=== PATIENT | female | born 1995 | race African-American/Black ===

== ENCOUNTER 2016-12-21 07:13 | Emergency (ER) | payer OTHER ==
[2016-12-21 08:03] LABS: BASO % 0.5 % (0.0-1.0); EOS # 0.1 K/mm3 (0.0-0.50); EOS % 2.2 % (0.0-3.0); LARGE UNSTAINED CELL # 0.1 K/mm3 (0.0-0.4); LARGE UNSTAINED CELL % 2.4 % (0.0-4.0); LYMPH # 1.5 K/mm3 (1.5-6.5); LYMPH % 29.9 % (24.0-44.0); MEAN CORPUSCULAR HEMOGLOBIN 31.4 pg (27.0-33.0); MEAN CORPUSCULAR HGB CONC 34.8 g/dl (32.0-36.5); MEAN CORPUSCULAR VOLUME 90.3 fl (80.0-96.0); MONO # 0.3 K/mm3 (0.0-0.8); MONO % 5.3 % (0.0-5.0); NEUTROPHILS # 3.1 K/mm3 (1.8-7.7); NEUTROPHILS % 59.6 % (36.0-66.0); PLATELET COUNT, AUTOMATED 197 k/mm3 (150-450); RED CELL DISTRIBUTION WIDTH 12.9 % (11.5-14.5); WHITE BLOOD COUNT 5.2 K/mm3 (4.0-10.0)
[2016-12-21 08:22] LABS: ANION GAP 9 MEQ/L (8-16); BLOOD UREA NITROGEN 14 MG/DL (7-18); CALCIUM LEVEL 8.5 MG/DL (8.5-10.1); CARBON DIOXIDE LEVEL 22 MEQ/L (21-32); CHLORIDE LEVEL 108 MEQ/L (98-107); CREATININE FOR GFR 0.57 MG/DL (0.55-1.02); GLUCOSE, FASTING 69 MG/DL (70-105); POTASSIUM SERUM 3.9 MEQ/L (3.5-5.1); SODIUM LEVEL 139 MEQ/L (136-145)
--- NOTE | 2016-12-21 08:45 | EDDOCDS ---
Physician Documentation [facility] Name: Veronique Young Age: 21 yrs Sex: Female : 1995 Arrival Date: 12/21/2016 Time: 07:13 Bed I4 / M4 Private MD: Disposition: 12/21/16 08:33 Discharged to Home/Self Care. Impression: Acute vaginitis - bacterial, Abdominal and pelvic pain, state - second trimester. - Condition is Stable. - Discharge Instructions: Abdominal Pain During , Bacterial Vaginosis, Second Trimester of , Unjf-qo-Ooah. - Prescriptions for Metronidazole 0.75 % Vaginal Gel - insert 37.5 milligrams by VAGINAL route 2 times per day for 5 days in the morning and evening; 1 tube. - Medication Reconciliation, Local Pharmacy Hours form. - Follow up: Marietta Madrid, OB; When: Call to arrange an appointment; Reason: Recheck today's complaints, Continuance of care. - Problem is new. - Symptoms are unchanged. - Notes: may use extra strength tylenol as needed for pain Historical: - Allergies: no known allergies; - Home Meds: 1. 28 mg iron- 800 mcg Oral tab 1 tab daily (Last dose: 12/20/2016 08:00) - PMHx: none; - PSHx: none; - Social history: Smoking status: Patient states was never smoker of tobacco. No barriers to communication noted, Speaks appropriately for age. - Family history: Not pertinent. - : The pt / caregiver states he / she is not on anticoagulants. Home medication list is obtained from the patient. - Exposure Risk Screening:: None identified. 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 6 in. (167.64 cm) (R); Pain 10/10; 08:42 BP 112 / 65; Pulse 75; Resp 20; Temp 97.1(O); Pulse Ox 98% on R/A; Pain 8/10; jml1 07:19 Body Mass Index 26.63 (74.84 kg, 167.64 cm) ml6 MDM: 07:32 Set up pelvic ordered. ar2 07:32 Heart Tones ordered. ar2 07:32 CBC with Diff Ordered. EDMS 07:32 MED Profile Ordered. EDMS 07:32 UA Ordered. EDMS 07:32 Wet Prep Ordered. EDMS 07:32 GC & Chlamydia Amplification Ordered. EDMS 07:32 Urine Culture Ordered. EDMS 07:57 Financial registration complete. mm15 07:57 [facility] Payment Agreement was scanned into [employer] and attached to record. mm15 08:22 CBC with Diff Reviewed. ar2 08:22 UA Reviewed. ar2 08:22 Wet Prep Reviewed. ar2 08:30 MED Profile Reviewed. ar2 Signatures: Dispatcher [employer] Yamilex Concepcion RN RN dls Harman Dwyer, PA-C PA-C ar2 Deon Small RN RN ml6 Ling Gallo mm15 The chart was reviewed and I authenticate all verbal orders and agree with the evaluation and treatment provided.Attachments: 07:57 [facility] Payment Agreement mm15 MTDD
--- NOTE | 2016-12-21 08:45 | EDDOCDS ---
Nurse's Notes [facility] Name: Veronique Young Age: 21 yrs Sex: Female : 1995 Arrival Date: 12/21/2016 Time: 07:13 Bed I4 / M4 Private MD: Diagnosis: Acute vaginitis-bacterial;Abdominal and pelvic pain; state-second trimester Presentation: 12/21 07:18 Presenting complaint: Patient states: patient states lower abd pain and pelvic pain ml6 since yesterday, states 15 weeks . Risk factors: the patient reports no vaginal bleeding. Adult Sepsis Screening: The patient does not have new or worsening altered mentation. Patient's respiratory rate is less than 22. Systolic blood pressure is greater than 100. Patient has a qSOFA score of 0- Negative Sepsis Screen. Suicide/Homicide risk assessment- the patient denies having any suicidal and/or homicidal ideations and does not present with any other emotional, behavioral or mental health complaints. 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 Transition of care: patient was not received from another setting of care. 07:18 Acuity: JUAN F Level 3 ml6 07:18 Method Of Arrival: Walkin/Carried/Asstd ml6 Triage Assessment: 07:20 General: Appears uncomfortable, Behavior is appropriate for age, cooperative. Pain: ml6 Location: abdomen and pelvis Pain currently is 10 out of 10 on a pain scale. Pain does not radiate. Quality of pain is described as aching, Pain began 1 day ago Is continuous Alleviated by nothing. Aggravated by increased activity. HIV screening NA for this visit Offered previously. GI: Abdomen is flat, gravid Bowel sounds present X 4 quads. Abd is soft and non tender X 4 quads. Reports Pain is 10 out of 10 on a pain scale. Denies nausea, vomiting. 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 28 mg iron- 800 mcg Oral tab 1 tab daily (Last dose: 12/20/2016 08:00) - PMHx: none; - PSHx: none; - Social history: Smoking status: Patient states was never smoker of tobacco. No barriers to communication noted, Speaks appropriately for age. - Family history: Not pertinent. - : The pt / caregiver states he / she is not on anticoagulants. Home medication list is obtained from the patient. - Exposure Risk Screening:: None identified. Screenin:46 Screening information is obtained from the patient. Fall risk: No risks identified. dls Assistance ADL's: requires no assistance with activities of daily living. Abuse/DV Screen: The patient / caregiver reports he/she is: not in a situation that causes fear, pain or injury. Nutritional screening: No deficits noted. Advance Directives: Currently, there is no health care proxy. There is no active DNR order. There is no living will. There is no Power of [employer]. Advance directive information has not previously been placed in an [facility] medical record. home support is adequate. Assessment: 07:45 General: Appears in no apparent distress, well developed, well nourished, well groomed, dls Behavior is cooperative. Neurological: No deficits noted. EENT: No deficits noted. Cardiovascular: No deficits noted. Respiratory: No deficits noted. GI: Abdomen is non- distended Bowel sounds present X 4 quads. Abd is soft and non tender X 4 quads. : No deficits noted. Derm: No deficits noted. Musculoskeletal: No deficits noted. Vital Signs: 07:19 BP 129 / 67; Pulse 67; Resp 16; Temp 98.3(O); Pulse Ox 98% on R/A; Weight 74.84 kg (R); ml6 Height 5 ft. 6 in. (167.64 cm) (R); Pain 10/10; 08:42 BP 112 / 65; Pulse 75; Resp 20; Temp 97.1(O); Pulse Ox 98% on R/A; Pain 8/10; jml1 07:19 Body Mass Index 26.63 (74.84 kg, 167.64 cm) ml6 Vitals: 07:19 Log In Time: December 21, 2016 at 07:13. ml6 07:44 Heart Tones 150BPM. dls ED Course: 07:14 Patient visited by Robert Murdock Reg. pm4 07:14 Patient moved to Waiting pm4 07:19 Triage Initiated ml6 07:21 Patient moved to I3 / M3 ml6 07:22 Harman Dwyer PA-C is PHCP. ar2 07:22 Jesus Alberto Vargas MD is Attending Physician. ar2 07:22 Patient visited by Harman Dwyer PA-C. ar2 07:23 Patient moved to I4 / M4 ml6 07:46 The patient / caregiver is instructed regarding the plan of care and ED course. dls 07:46 No IV's were initiated during this patient's visit. dls 07:56 Urine Culture Sent. dls 07:56 UA Sent. dls 07:56 MED Profile Sent. dls 07:56 CBC with Diff Sent. dls 07:57 [facility] Payment Agreement was scanned into [employer] and attached to record. mm15 08:05 GC & Chlamydia Amplification Sent. jml1 08:05 Wet Prep Sent. jml1 08:22 Patient visited by Yamilex Sotelo RN. dls 08:32 Marietta Madrid OB is Referral Physician. ar2 08:42 Patient visited by Arnie Owusu. jml1 08:44 No procedures done that require assistance. dls Order Results: Lab Order: CBC with Diff; SPEC'M 12/21/16 07:45 Test: WHITE BLOOD COUNT; Value: 5.2; Range: 4.0-10.0; Units: K/mm3; Status: F Test: RED BLOOD COUNT; Value: 3.90; Range: 4.00-5.40; Abnormal: Below low normal; Units: M/mm3; Status: F Test: HEMOGLOBIN; Value: 12.2; Range: 12.0-16.0; Units: g/dl; Status: F Test: HEMATOCRIT; Value: 35.2; Range: 36.0-47.0; Abnormal: Below low normal; Units: %; Status: F Test: MEAN CORPUSCULAR VOLUME; Value: 90.3; Range: 80.0-96.0; Units: fl; Status: F Test: MEAN CORPUSCULAR HEMOGLOBIN; Value: 31.4; Range: 27.0-33.0; Units: pg; Status: F Test: MEAN CORPUSCULAR HGB CONC; Value: 34.8; Range: 32.0-36.5; Units: g/dl; Status: F Test: RED CELL DISTRIBUTION WIDTH; Value: 12.9; Range: 11.5-14.5; Units: %; Status: F Test: PLATELET COUNT, AUTOMATED; Value: 197; Range: 150-450; Units: k/mm3; Status: F Test: NEUTROPHILS %; Value: 59.6; Range: 36.0-66.0; Units: %; Status: F Test: LYMPH %; Value: 29.9; Range: 24.0-44.0; Units: %; Status: F Test: MONO %; Value: 5.3; Range: 0.0-5.0; Abnormal: Above high normal; Units: %; Status: F Test: EOS %; Value: 2.2; Range: 0.0-3.0; Units: %; Status: F Test: BASO %; Value: 0.5; Range: 0.0-1.0; Units: %; Status: F Test: LARGE UNSTAINED CELL %; Value: 2.4; Range: 0.0-4.0; Units: %; Status: F Test: NEUTROPHILS #; Value: 3.1; Range: 1.8-7.7; Units: K/mm3; Status: F Test: LYMPH #; Value: 1.5; Range: 1.5-6.5; Units: K/mm3; Status: F Test: MONO #; Value: 0.3; Range: 0.0-0.8; Units: K/mm3; Status: F Test: EOS #; Value: 0.1; Range: 0.0-0.50; Units: K/mm3; Status: F Test: BASO #; Value: 0.0; Range: 0.0-0.2; Units: K/mm3; Status: F Test: LARGE UNSTAINED CELL #; Value: 0.1; Range: 0.0-0.4; Units: K/mm3; Status: F Lab Order: MED Profile; SPEC'M 12/21/16 07:45 Test: GLUCOSE, FASTING; Value: 69; Range: 70-105; Abnormal: Below low normal; Units: MG/DL; Status: F Test: BLOOD UREA NITROGEN; Value: 14; Range: 7-18; Units: MG/DL; Status: F Test: CREATININE FOR GFR; Value: 0.57; Range: 0.55-1.02; Units: MG/DL; Status: F Test: SODIUM LEVEL; Value: 139; Range: 136-145; Units: MEQ/L; Status: F Test: POTASSIUM SERUM; Value: 3.9; Range: 3.5-5.1; Units: MEQ/L; Status: F Test: CHLORIDE LEVEL; Value: 108; Range: 98-107; Abnormal: Above high normal; Units: MEQ/L; Status: F Test: CARBON DIOXIDE LEVEL; Value: 22; Range: 21-32; Units: MEQ/L; Status: F Test: ANION GAP; Value: 9; Range: 8-16; Units: MEQ/L; Status: F Test: CALCIUM LEVEL; Value: 8.5; Range: 8.5-10.1; Units: MG/DL; Status: F Lab Order: UA; SPEC'M 12/21/16 07:45 Test: APPEARANCE, URINE; Value: HAZY; Range: CLEAR; Status: F Test: COLOR, URINE; Value: YELLOW; Range: YELLOW; Status: F Test: PH,URINE; Value: 6.0; Range: 5.0-9.0; Units: UNITS; Status: F Test: SPECIFIC GRAVITY URINE AUTO; Value: 1.025; Range: 1.002-1.035; Status: F Test: PROTEIN, URINE AUTO; Value: NEGATIVE; Range: NEGATIVE; Units: mg/dL; Status: F Test: GLUCOSE, URINE (UA) AUTO; Value: NEGATIVE; Range: NEGATIVE; Units: mg/dL; Status: F Test: KETONE, URINE AUTO; Value: NEGATIVE; Range: NEGATIVE; Units: mg/dL; Status: F Test: UROBILINOGEN, URINE AUTO; Value: 0.2; Range: 0.0-2.0; Units: mg/dL; Status: F Test: BILIRUBIN, URINE AUTO; Value: NEGATIVE; Range: NEGATIVE; Status: F Test: NITRITE, URINE AUTO; Value: NEGATIVE; Range: NEGATIVE; Status: F Test: LEUKOCYTE ESTERASE, URINE AUTO; Value: NEGATIVE; Range: NEGATIVE; Status: F Test: BLOOD, URINE BLOOD; Value: NEGATIVE; Range: NEGATIVE; Status: F Test: WBC, URINE AUTO; Value: 1; Range: 0-3; Units: /HPF; Status: F Test: RBC, URINE AUTO; Value: 1; Range: 0-3; Units: /HPF; Status: F Test: BACTERIA, URINE AUTO; Value: 1+; Range: NEGATIVE; Abnormal: Above high normal; Status: F Test: SQUAMOUS EPITHELIAL CELL UR AU; Value: 1; Range: 0-6; Units: /HPF; Status: F Test: MUCUS, URINE; Value: SMALL; Range: NEGATIVE; Status: F Test: HYALINE CAST, URINE AUTO; Value: 0; Range: 0-1; Units: /LPF; Status: F Lab Order: Wet Prep; SPEC'M 12/21/16 07:45 Test: WET PREP; Value: WET PREP RESULT; Status: F Test: WET PREP; Value: MANY EPITHELIAL CELLS PRESENT; Status: F Test: WET PREP; Value: FEW CLUE CELLS PRESENT; Status: F Test: WET PREP; Value: MANY LONG RODS PRESENT; Status: F Outcome: 08:33 Discharge ordered by Provider. ar2 08:43 Discharge Assessment: Patient awake, alert and oriented x 3. No cognitive and/or dls functional deficits noted. Patient verbalized understanding of disposition instructions. patient administered narcotics - no. The following High Risk Discharge criteria are identified: None. Discharged to home ambulatory. Condition: stable. Discharge instructions given to patient, Instructed on discharge instructions, follow up and referral plans. medication usage, Demonstrated understanding of instructions, medications, Pt was receptive of discharge instructions/ teaching. Prescriptions given X 1. No special radiology studies were completed. Property sent home with patient. 08:44 Patient left the ED. dls Signatures: Yamilex Sotelo, RN RN dls Harman Dwyer PA-C PA-C ar2 Deon Small RN RN ml6 Arnie Owusul1 Ling Gallo mm15 Robert Murdock, Reg Reg pm4 MTDD
--- NOTE | 2016-12-23 09:45 | EDDOCDS ---
Physician Documentation [facility] Name: Veronique Young Age: 21 yrs Sex: Female : 1995 Arrival Date: 12/21/2016 Time: 07:13 Bed I4 / M4 Private MD: Disposition: 12/21/16 08:33 Discharged to Home/Self Care. Impression: Acute vaginitis - bacterial, Abdominal and pelvic pain, state - second trimester. - Condition is Stable. - Discharge Instructions: Abdominal Pain During , Bacterial Vaginosis, Second Trimester of , [id number]. - Prescriptions for Metronidazole 0.75 % Vaginal Gel - insert 37.5 milligrams by VAGINAL route 2 times per day for 5 days in the morning and evening; 1 tube. - Medication Reconciliation, Local Pharmacy Hours form. - Follow up: Marietta Madrid, OB; When: Call to arrange an appointment; Reason: Recheck today's complaints, Continuance of care. - Problem is new. - Symptoms are unchanged. - Notes: may use extra strength tylenol as needed for pain Historical: - Allergies: no known allergies; - Home Meds: 1. 28 mg iron- 800 mcg Oral tab 1 tab daily (Last dose: 12/20/2016 08:00) - PMHx: none; - PSHx: none; - Social history: Smoking status: Patient states was never smoker of tobacco. No barriers to communication noted, Speaks appropriately for age. - Family history: Not pertinent. - : The pt / caregiver states he / she is not on anticoagulants. Home medication list is obtained from the patient. - Exposure Risk Screening:: None identified. 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 6 in. (167.64 cm) (R); Pain 10/10; 08:42 BP 112 / 65; Pulse 75; Resp 20; Temp 97.1(O); Pulse Ox 98% on R/A; Pain 8/10; jml1 07:19 Body Mass Index 26.63 (74.84 kg, 167.64 cm) ml6 MDM: 07:32 Set up pelvic ordered. ar2 07:32 Heart Tones ordered. ar2 07:32 CBC with Diff Ordered. EDMS 07:32 MED Profile Ordered. EDMS 07:32 UA Ordered. EDMS 07:32 Wet Prep Ordered. EDMS 07:32 GC & Chlamydia Amplification Ordered. EDMS 07:32 Urine Culture Ordered. EDMS 07:57 Financial registration complete. mm15 07:57 [facility] Payment Agreement was scanned into [employer] and attached to record. mm15 08:22 CBC with Diff Reviewed. ar2 08:22 UA Reviewed. ar2 08:22 Wet Prep Reviewed. ar2 08:30 MED Profile Reviewed. ar2 14:28 T-Sheet-- Draft Copy was scanned into [employer] and attached to record. gb Signatures: Dispatcher [employer] Yamilex Concepcion, MARIE RN dls Tiffany Wilcox, Reg Reg gb Harman Dwyer, PA-C PA-Tamara ar2 Deon Small, MARIE RN ml6 Ling Gallo mm15 The chart was reviewed and I authenticate all verbal orders and agree with the evaluation and treatment provided.Attachments: 07:57 [facility] Payment Agreement mm15 14:28 T-Sheet-- Draft Copy gb Chart Complete MTDD
--- NOTE | 2016-12-23 09:45 | EDDOCDS ---
Physician Documentation [facility] Name: Veronique Young Age: 21 yrs Sex: Female : 1995 Arrival Date: 12/21/2016 Time: 07:13 Bed I4 / M4 Private MD: Disposition: 12/21/16 08:33 Discharged to Home/Self Care. Impression: Acute vaginitis - bacterial, Abdominal and pelvic pain, state - second trimester. - Condition is Stable. - Discharge Instructions: Abdominal Pain During , Bacterial Vaginosis, Second Trimester of , [id number]. - Prescriptions for Metronidazole 0.75 % Vaginal Gel - insert 37.5 milligrams by VAGINAL route 2 times per day for 5 days in the morning and evening; 1 tube. - Medication Reconciliation, Local Pharmacy Hours form. - Follow up: Marietta Madrid, OB; When: Call to arrange an appointment; Reason: Recheck today's complaints, Continuance of care. - Problem is new. - Symptoms are unchanged. - Notes: may use extra strength tylenol as needed for pain Historical: - Allergies: no known allergies; - Home Meds: 1. 28 mg iron- 800 mcg Oral tab 1 tab daily (Last dose: 12/20/2016 08:00) - PMHx: none; - PSHx: none; - Social history: Smoking status: Patient states was never smoker of tobacco. No barriers to communication noted, Speaks appropriately for age. - Family history: Not pertinent. - : The pt / caregiver states he / she is not on anticoagulants. Home medication list is obtained from the patient. - Exposure Risk Screening:: None identified. 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 6 in. (167.64 cm) (R); Pain 10/10; 08:42 BP 112 / 65; Pulse 75; Resp 20; Temp 97.1(O); Pulse Ox 98% on R/A; Pain 8/10; jml1 07:19 Body Mass Index 26.63 (74.84 kg, 167.64 cm) ml6 MDM: 07:32 Set up pelvic ordered. ar2 07:32 Heart Tones ordered. ar2 07:32 CBC with Diff Ordered. EDMS 07:32 MED Profile Ordered. EDMS 07:32 UA Ordered. EDMS 07:32 Wet Prep Ordered. EDMS 07:32 GC & Chlamydia Amplification Ordered. EDMS 07:32 Urine Culture Ordered. EDMS 07:57 Financial registration complete. mm15 07:57 [facility] Payment Agreement was scanned into [employer] and attached to record. mm15 08:22 CBC with Diff Reviewed. ar2 08:22 UA Reviewed. ar2 08:22 Wet Prep Reviewed. ar2 08:30 MED Profile Reviewed. ar2 14:28 T-Sheet-- Draft Copy was scanned into [employer] and attached to record. gb Signatures: Dispatcher [employer] Yamilex Concepcion, MARIE RN dls Tiffany Wilcox, Reg Reg gb Harman Dwyer, PA-C PA-Tamara ar2 Deon Small, MARIE RN ml6 Ling Gallo mm15 The chart was reviewed and I authenticate all verbal orders and agree with the evaluation and treatment provided.Attachments: 07:57 [facility] Payment Agreement mm15 14:28 T-Sheet-- Draft Copy gb Chart Complete MTDD
--- NOTE | 2016-12-23 09:45 | EDDOCDS ---
Nurse's Notes [facility] Name: Veronique Young Age: 21 yrs Sex: Female : 1995 Arrival Date: 12/21/2016 Time: 07:13 Bed I4 / M4 Private MD: Diagnosis: Acute vaginitis-bacterial;Abdominal and pelvic pain; state-second trimester Presentation: 12/21 07:18 Presenting complaint: Patient states: patient states lower abd pain and pelvic pain ml6 since yesterday, states 15 weeks . Risk factors: the patient reports no vaginal bleeding. Adult Sepsis Screening: The patient does not have new or worsening altered mentation. Patient's respiratory rate is less than 22. Systolic blood pressure is greater than 100. Patient has a qSOFA score of 0- Negative Sepsis Screen. Suicide/Homicide risk assessment- the patient denies having any suicidal and/or homicidal ideations and does not present with any other emotional, behavioral or mental health complaints. 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 Transition of care: patient was not received from another setting of care. 07:18 Acuity: JUAN F Level 3 ml6 07:18 Method Of Arrival: Walkin/Carried/Asstd ml6 Triage Assessment: 07:20 General: Appears uncomfortable, Behavior is appropriate for age, cooperative. Pain: ml6 Location: abdomen and pelvis Pain currently is 10 out of 10 on a pain scale. Pain does not radiate. Quality of pain is described as aching, Pain began 1 day ago Is continuous Alleviated by nothing. Aggravated by increased activity. HIV screening NA for this visit Offered previously. GI: Abdomen is flat, gravid Bowel sounds present X 4 quads. Abd is soft and non tender X 4 quads. Reports Pain is 10 out of 10 on a pain scale. Denies nausea, vomiting. VP COMMUNICATIONS: 07:19 2, Living 1, LMP 08/29/2016, Verified, EDC 06/05/2017, Gestational age ml6 from LMP: 16 weeks 2 days Historical: - Allergies: no known allergies; - Home Meds: 1. 28 mg iron- 800 mcg Oral tab 1 tab daily (Last dose: 12/20/2016 08:00) - PMHx: none; - PSHx: none; - Social history: Smoking status: Patient states was never smoker of tobacco. No barriers to communication noted, Speaks appropriately for age. - Family history: Not pertinent. - : The pt / caregiver states he / she is not on anticoagulants. Home medication list is obtained from the patient. - Exposure Risk Screening:: None identified. Screenin:46 Screening information is obtained from the patient. Fall risk: No risks identified. dls Assistance ADL's: requires no assistance with activities of daily living. Abuse/DV Screen: The patient / caregiver reports he/she is: not in a situation that causes fear, pain or injury. Nutritional screening: No deficits noted. Advance Directives: Currently, there is no health care proxy. There is no active DNR order. There is no living will. There is no Power of Hat Liner. Advance directive information has not previously been placed in an [facility] medical record. home support is adequate. Assessment: 07:45 General: Appears in no apparent distress, well developed, well nourished, well groomed, dls Behavior is cooperative. Neurological: No deficits noted. EENT: No deficits noted. Cardiovascular: No deficits noted. Respiratory: No deficits noted. GI: Abdomen is non- distended Bowel sounds present X 4 quads. Abd is soft and non tender X 4 quads. : No deficits noted. Derm: No deficits noted. Musculoskeletal: No deficits noted. Vital Signs: 07:19 BP 129 / 67; Pulse 67; Resp 16; Temp 98.3(O); Pulse Ox 98% on R/A; Weight 74.84 kg (R); ml6 Height 5 ft. 6 in. (167.64 cm) (R); Pain 10/10; 08:42 BP 112 / 65; Pulse 75; Resp 20; Temp 97.1(O); Pulse Ox 98% on R/A; Pain 8/10; jml1 07:19 Body Mass Index 26.63 (74.84 kg, 167.64 cm) ml6 Vitals: 07:19 Log In Time: December 21, 2016 at 07:13. ml6 07:44 Heart Tones 150BPM. dls ED Course: 07:14 Patient visited by Robert Murdock Reg. pm4 07:14 Patient moved to Waiting pm4 07:19 Triage Initiated ml6 07:21 Patient moved to I3 / M3 ml6 07:22 Harman Dwyer PA-C is PHCP. ar2 07:22 Jesus Alberto Vargas MD is Attending Physician. ar2 07:22 Patient visited by Harman Dwyer PA-C. ar2 07:23 Patient moved to I4 / M4 ml6 07:46 The patient / caregiver is instructed regarding the plan of care and ED course. dls 07:46 No IV's were initiated during this patient's visit. dls 07:56 Urine Culture Sent. dls 07:56 UA Sent. dls 07:56 MED Profile Sent. dls 07:56 CBC with Diff Sent. dls 07:57 [facility] Payment Agreement was scanned into [employer] and attached to record. mm15 08:05 GC & Chlamydia Amplification Sent. jml1 08:05 Wet Prep Sent. jml1 08:22 Patient visited by Yamilex Sotelo RN. dls 08:32 Marietta Madrid OB is Referral Physician. ar2 08:42 Patient visited by Arnie Owusu. jml1 08:44 No procedures done that require assistance. dls 14:28 T-Sheet-- Draft Copy was scanned into [employer] and attached to record. gb Order Results: Lab Order: CBC with Diff; SPEC'M 12/21/16 07:45 Test: WHITE BLOOD COUNT; Value: 5.2; Range: 4.0-10.0; Units: K/mm3; Status: F Test: RED BLOOD COUNT; Value: 3.90; Range: 4.00-5.40; Abnormal: Below low normal; Units: M/mm3; Status: F Test: HEMOGLOBIN; Value: 12.2; Range: 12.0-16.0; Units: g/dl; Status: F Test: HEMATOCRIT; Value: 35.2; Range: 36.0-47.0; Abnormal: Below low normal; Units: %; Status: F Test: MEAN CORPUSCULAR VOLUME; Value: 90.3; Range: 80.0-96.0; Units: fl; Status: F Test: MEAN CORPUSCULAR HEMOGLOBIN; Value: 31.4; Range: 27.0-33.0; Units: pg; Status: F Test: MEAN CORPUSCULAR HGB CONC; Value: 34.8; Range: 32.0-36.5; Units: g/dl; Status: F Test: RED CELL DISTRIBUTION WIDTH; Value: 12.9; Range: 11.5-14.5; Units: %; Status: F Test: PLATELET COUNT, AUTOMATED; Value: 197; Range: 150-450; Units: k/mm3; Status: F Test: NEUTROPHILS %; Value: 59.6; Range: 36.0-66.0; Units: %; Status: F Test: LYMPH %; Value: 29.9; Range: 24.0-44.0; Units: %; Status: F Test: MONO %; Value: 5.3; Range: 0.0-5.0; Abnormal: Above high normal; Units: %; Status: F Test: EOS %; Value: 2.2; Range: 0.0-3.0; Units: %; Status: F Test: BASO %; Value: 0.5; Range: 0.0-1.0; Units: %; Status: F Test: LARGE UNSTAINED CELL %; Value: 2.4; Range: 0.0-4.0; Units: %; Status: F Test: NEUTROPHILS #; Value: 3.1; Range: 1.8-7.7; Units: K/mm3; Status: F Test: LYMPH #; Value: 1.5; Range: 1.5-6.5; Units: K/mm3; Status: F Test: MONO #; Value: 0.3; Range: 0.0-0.8; Units: K/mm3; Status: F Test: EOS #; Value: 0.1; Range: 0.0-0.50; Units: K/mm3; Status: F Test: BASO #; Value: 0.0; Range: 0.0-0.2; Units: K/mm3; Status: F Test: LARGE UNSTAINED CELL #; Value: 0.1; Range: 0.0-0.4; Units: K/mm3; Status: F Lab Order: [facility]; SPEC'M 12/21/16 07:45 Test: GLUCOSE, FASTING; Value: 69; Range: 70-105; Abnormal: Below low normal; Units: MG/DL; Status: F Test: BLOOD UREA NITROGEN; Value: 14; Range: 7-18; Units: MG/DL; Status: F Test: CREATININE FOR GFR; Value: 0.57; Range: 0.55-1.02; Units: MG/DL; Status: F Test: SODIUM LEVEL; Value: 139; Range: 136-145; Units: MEQ/L; Status: F Test: POTASSIUM SERUM; Value: 3.9; Range: 3.5-5.1; Units: MEQ/L; Status: F Test: CHLORIDE LEVEL; Value: 108; Range: 98-107; Abnormal: Above high normal; Units: MEQ/L; Status: F Test: CARBON DIOXIDE LEVEL; Value: 22; Range: 21-32; Units: MEQ/L; Status: F Test: ANION GAP; Value: 9; Range: 8-16; Units: MEQ/L; Status: F Test: CALCIUM LEVEL; Value: 8.5; Range: 8.5-10.1; Units: MG/DL; Status: F Lab Order: UA; SPEC'M 12/21/16 07:45 Test: APPEARANCE, URINE; Value: HAZY; Range: CLEAR; Status: F Test: COLOR, URINE; Value: YELLOW; Range: YELLOW; Status: F Test: PH,URINE; Value: 6.0; Range: 5.0-9.0; Units: UNITS; Status: F Test: SPECIFIC GRAVITY URINE AUTO; Value: 1.025; Range: 1.002-1.035; Status: F Test: PROTEIN, URINE AUTO; Value: NEGATIVE; Range: NEGATIVE; Units: mg/dL; Status: F Test: GLUCOSE, URINE (UA) AUTO; Value: NEGATIVE; Range: NEGATIVE; Units: mg/dL; Status: F Test: KETONE, URINE AUTO; Value: NEGATIVE; Range: NEGATIVE; Units: mg/dL; Status: F Test: UROBILINOGEN, URINE AUTO; Value: 0.2; Range: 0.0-2.0; Units: mg/dL; Status: F Test: BILIRUBIN, URINE AUTO; Value: NEGATIVE; Range: NEGATIVE; Status: F Test: NITRITE, URINE AUTO; Value: NEGATIVE; Range: NEGATIVE; Status: F Test: LEUKOCYTE ESTERASE, URINE AUTO; Value: NEGATIVE; Range: NEGATIVE; Status: F Test: BLOOD, URINE BLOOD; Value: NEGATIVE; Range: NEGATIVE; Status: F Test: WBC, URINE AUTO; Value: 1; Range: 0-3; Units: /HPF; Status: F Test: RBC, URINE AUTO; Value: 1; Range: 0-3; Units: /HPF; Status: F Test: BACTERIA, URINE AUTO; Value: 1+; Range: NEGATIVE; Abnormal: Above high normal; Status: F Test: SQUAMOUS EPITHELIAL CELL UR AU; Value: 1; Range: 0-6; Units: /HPF; Status: F Test: MUCUS, URINE; Value: SMALL; Range: NEGATIVE; Status: F Test: HYALINE CAST, URINE AUTO; Value: 0; Range: 0-1; Units: /LPF; Status: F Lab Order: Wet Prep; SPEC'M 12/21/16 07:45 Test: WET PREP; Value: WET PREP RESULT; Status: F Test: WET PREP; Value: MANY EPITHELIAL CELLS PRESENT; Status: F Test: WET PREP; Value: FEW CLUE CELLS PRESENT; Status: F Test: WET PREP; Value: MANY LONG RODS PRESENT; Status: F Lab Order: GC & Chlamydia Amplification; SPEC'M 12/21/16 07:45 Test: CHLAMYDIA DNA AMPLIFICATION; Value: NEGATIVE; Range: NEGATIVE; Status: F Test: GC DNA AMPLIFICATION; Value: NEGATIVE; Range: NEGATIVE; Status: F Lab Order: Urine Culture; SPEC'M 12/21/16 07:45 Test: URINE CULTURE; Value: <EXTERNAL COMMENT eCWMed> FULL REPORT IN LAB NOTES (eCW and Medent).; Status: F Test: URINE CULTURE; Value: URINE CULTURE RESULT NO GROWTH; Status: F Outcome: 08:33 Discharge ordered by Provider. ar2 08:43 Discharge Assessment: Patient awake, alert and oriented x 3. No cognitive and/or dls functional deficits noted. Patient verbalized understanding of disposition instructions. patient administered narcotics - no. The following High Risk Discharge criteria are identified: None. Discharged to home ambulatory. Condition: stable. Discharge instructions given to patient, Instructed on discharge instructions, follow up and referral plans. medication usage, Demonstrated understanding of instructions, medications, Pt was receptive of discharge instructions/ teaching. Prescriptions given X 1. No special radiology studies were completed. Property sent home with patient. 08:44 Patient left the ED. dls Signatures: Yamilex Sotelo, RN RN dls Tiffany Wilcox, Reg Reg gb Harman Dwyer, PA-C PA-C ar2 Deon Small RN RN ml6 Arnie Owusu jml1 Ling Gallo mm15 Robert Murdock, Reg Reg pm4 Chart Complete MTDD
== END 2016-12-21 08:44 | disposition home or self-care (01) ==
LOC: M ED 07:13
DX: O23.592 Infection of other part of genital tract in pregnancy, second trimester (principal); R10.2 Pelvic and perineal pain; Z79.899 Other long term (current) drug therapy; Z3A.19 19 weeks gestation of pregnancy

== ENCOUNTER 2017-04-11 21:25 | Outpatient (CLI) | payer OTHER ==
[~2017-04-11] VITALS: Ht 167.6 cm; Wt 84.0 kg
== END 2017-04-11 23:00 | disposition home or self-care (01) ==
LOC: M LDO 21:25
PROVIDERS: ATTEND Obstetrics & Gynecology
DX: O26.893 Other specified pregnancy related conditions, third trimester (principal); R10.2 Pelvic and perineal pain; Z3A.31 31 weeks gestation of pregnancy

== ENCOUNTER 2017-05-18 20:25 | Outpatient (CLI) | payer OTHER ==
[~2017-05-18] VITALS: Ht 167.6 cm; Wt 88.0 kg
[2017-05-18 20:35] VITALS: BP 110/74
[2017-05-18 21:29] VITALS: BP 108/60
== END 2017-05-18 21:32 | disposition home or self-care (01) ==
LOC: M LDO 20:25
PROVIDERS: ATTEND Obstetrics & Gynecology
DX: O26.893 Other specified pregnancy related conditions, third trimester (principal); Z3A.36 36 weeks gestation of pregnancy; N89.9 Noninflammatory disorder of vagina, unspecified

== ENCOUNTER 2017-06-15 06:15 | Inpatient (IN) | payer OTHER ==
[2017-06-15] VITALS (38 sets, daily range): BP systolic 102–137; BP diastolic 54–81
[~2017-06-15] VITALS: Ht 167.6 cm; Wt 89.5 kg
[2017-06-15] MEDS ORDERED: LACTATED RINGER'S 1000 ML IV STA (07:44)
[2017-06-15] MEDS ORDERED: LR 1,000 ML IV SCH (08:00)
[2017-06-15] MEDS ORDERED: PRENTAB9 PO (08:12)
[2017-06-15 08:19] LABS: MEAN CORPUSCULAR HEMOGLOBIN 28.5 pg (27.0-33.0); MEAN CORPUSCULAR HGB CONC 33.7 g/dl (32.0-36.5); MEAN CORPUSCULAR VOLUME 84.6 fl (80.0-96.0); RED CELL DISTRIBUTION WIDTH 13.7 % (11.5-14.5); WHITE BLOOD COUNT 6.6 K/mm3 (4.0-10.0)
--- NOTE | 2017-06-15 08:37 | IPNPDOC ---
Text Note Date of Service The patient was seen on 06/15/17. NOTE SBAR from Dr Pineda at 0730 NST Cat1, mod radhika, no decels, reg ctx's Cx / Doing well, likely AROM with next check SBAR to SOLOMON Hoff soon (I am covering for her) Sessions VS,Og, I+O VS, Og I+O Laboratory Tests 06/15/17 08:06 Red Blood Count 3.72 L, Mean Corpuscular Volume 84.6, Mean Corpuscular Hemoglobin 28.5, Mean Corpuscular Hemoglobin Concent 33.7, Red Cell Distribution Width 13.7 SESSIONS,CJ Das MD Jun 15, 2017 08:37
[2017-06-15] MEDS ORDERED: FENTANYL 2MCG/ML ROPIVACAINE 0.2% IN 0.9% NACL 200ML IVBAG As Ordered ONE (10:17)
[2017-06-15] MEDS ORDERED: EPIDURAL COMMENT XX SCH (12:00)
[2017-06-15] MEDS ORDERED: REFRIGERATOR IV KEYS XX PRN (12:00)
[2017-06-15] MEDS ORDERED: ONDANSETRON 4MG/2ML VIAL (J2405) IV PRN ×2 (12:00→17:30)
[2017-06-15] MEDS ORDERED: ePHEDrine SULFATE 25 MG/5 ML(5MG/ML) SYRINGE IV PRN (12:00)
[2017-06-15] MEDS ORDERED: NALOXONE INJ 0.4 MG/1 ML VIAL (J2310) IV PRN (12:00)
[2017-06-15] MEDS ORDERED: FENTANYL/ROPIVACAINE/NACL BAG 200 ML EPIDURAL SCH (12:00)
[2017-06-15] MEDS ORDERED: LACTATED RINGER'S 1000 ML IV PRN (12:00)
[2017-06-15] MEDS ORDERED: EPIDURAL/PCA KEYS XX PRN (12:00)
[2017-06-15] MEDS ORDERED: diphenhydrAMINE INJ 50MG/ML VIAL (J1200) IV PRN (12:00)
--- NOTE | 2017-06-15 14:04 | IPNPDOC ---
Text Note Date of Service The patient was seen on 06/15/17. NOTE [id number] @ 1359 S: resting in bed on her right side with FOB sitting with her. Reports she is very comfortable with the epidural infusing O: VS- WNL, afebrile FHR- 120, moderate variability, + accels, no decels CTX- irregular Q 4-8 min, lasting < 89 sec, palpated as moderate, resting tone palpated as soft SVE- 6/90/-2, soft/mid/vtx with bulging bag A: 22 yo @ 40+3 by 8+5 wk US on [id number] in active labor. CAT I FHR tracing, continued cervical progress P: continue to monitor, reassess in 2 hours or prn, rupture membranes at next exam VS,Fishbone, I+O VS, Fishbone, I+O Laboratory Tests 06/15/17 08:06 Red Blood Count 3.72 L, Mean Corpuscular Volume 84.6, Mean Corpuscular Hemoglobin 28.5, Mean Corpuscular Hemoglobin Concent 33.7, Red Cell Distribution Width 13.7 Vital Signs Date Time Temp Pulse Resp B/P (MAP) Pulse Ox O2 Delivery O2 Flow Rate FiO2 06/15/17 11:33 86 18 126/70 (88) 06/15/17 10:54 97.9 EMMA VIZCARRA CNM Jun 15, 2017 14:03
[2017-06-15] MEDS ORDERED: OXYTOCIN 30 UNITS IN 0.9% NaCl 500ML IV BAG (J2590) As Ordered ONE (16:40)
--- NOTE | 2017-06-15 17:14 | IPNPDOC ---
Text Note Date of Service The patient was seen on 06/15/17. NOTE [id number] @ 1712- late entry from 1515 S: resting in bed on her left side with FOB sitting with her. Reports she is very comfortable with the epidural infusing O: VS- WNL, afebrile FHR- 120, moderate variability, + accels, intermittent early and variable decels CTX- irregular Q 2-5 min, lasting < 90 sec, palpated as strong, resting tone palpated as soft SVE- 6/90/-2, soft/mid/vtx with bulging bag AROM- moderate amount of meconium stained fluid, no odor noted A: 22 yo @ 40+3 by 8+5 wk US on [id number] in active labor. CAT II FHR tracing, no cervical change noted P: continue to monitor, reassess in 2 hours or prn, rupture membranes at next exam VS,Fishbone, I+O VS, Fishbone, I+O Laboratory Tests 06/15/17 08:06 Red Blood Count 3.72 L, Mean Corpuscular Volume 84.6, Mean Corpuscular Hemoglobin 28.5, Mean Corpuscular Hemoglobin Concent 33.7, Red Cell Distribution Width 13.7 Vital Signs Date Time Temp Pulse Resp B/P (MAP) Pulse Ox O2 Delivery O2 Flow Rate FiO2 06/15/17 11:33 86 18 126/70 (88) 06/15/17 10:54 97.9 EMMA VIZCARRA CNM Jun 15, 2017 17:14
--- NOTE | 2017-06-15 17:17 | DNPDOC ---
[facility] Delivery Note Delivery Note DATE OF DELIVERY: Jun 15, 2017 at 1650 PREDELIVERY DIAGNOSIS: 40+3 weeks' gestation and labor. POST DELIVERY DIAGNOSIS: Delivered. PROCEDURE: (spontaneous vaginal delivery) FAT PRESSROOM WORKER: Crystal Hoff CNM ANESTHESIA: epidpineda ESTIMATED BLOOD LOSS: 200mL. FINDINGS: male infant, Score 9/9, no nuchal cord, has not been weighed at time this note was written DELIVERY SUMMARY: Patient is a 22-year-old G2 now P2002 who was admitted to labor and delivery for active labor. Progressed to c/c/+2 with epidural infusing and minimal desire to push; head noted when vomiting. Delivery was via of a viable male infant to a clean field; the presented occiput anterior with no nuchal cord noted; anterior shoulder(left) delivered with mild downward traction, then the posterior shoulder delivered with mild upward traction; remainder of corpus delivered spontaneously; cord clamped x 2 and cut by myself d/t meconium, infant noted to cry prior to cord being cut. taken to warmer where initial cleaning completed, then was moved to mother's chest for [id number]; pitocin was started with delivery of the ; 3 vessel cord and normal placenta were delivered without complications approx 8 minutes later; fundal massage was applied and vaginal vault was swept for clots; vagina and perineum examined; no lacerations noted. Fundus firm at U- 1. JJA=116 ml, Infant had 9/9; mother and are bonding well and were stable in the delivery room; anticipate routine PP course. Delivering Provider: SOLOMON Francis KELLI C. CNM Jun 15, 2017 17:17
[2017-06-15] MEDS ORDERED: OXYTOCIN DRIP 30 UNITS in APPROPRIATE DILUENT 1 EA IV SCH (17:22)
[2017-06-15] MEDS ORDERED: DOCUSATE SODIUM 100 MG CAP PO PRN (17:30)
[2017-06-15] MEDS ORDERED: MOM 30ML SUSPENSION UDC PO PRN (17:30)
[2017-06-15] MEDS ORDERED: PROMETHAZINE 25 MG TAB PO PRN (17:30)
[2017-06-15] MEDS ORDERED: DIBUCAINE 1% OINTMENT 30GM TOP PRN (17:30)
[2017-06-15] MEDS ORDERED: ACETAMINOPHEN 500 MG TAB PO PRN (17:30)
[2017-06-15] MEDS: IBUPROFEN 800 MG TAB PO PRN (19:46)
[2017-06-16 06:25] VITALS: BP 122/78
--- NOTE | 2017-06-16 06:55 | IPNPDOC ---
Text Note Date of Service The patient was seen on 06/16/17. NOTE PPD1 prog note States feeling well, no complaints. No heavy VB. Pain controlled. Voiding, ambulatory. Bonding well and breast feeding well. VSSAF CTAB RRR Ut at U-1, firm Ext no CCE a/p: Doing well. Routine PP care, 24 hrs tonight at ~1700, Dr Moy will likely d/c in the AM. Sessions Og IBANEZ, I+O VSOg I+O Laboratory Tests 06/15/17 08:06 Red Blood Count 3.72 L, Mean Corpuscular Volume 84.6, Mean Corpuscular Hemoglobin 28.5, Mean Corpuscular Hemoglobin Concent 33.7, Red Cell Distribution Width 13.7 Vital Signs Date Time Temp Pulse Resp B/P (MAP) Pulse Ox O2 Delivery O2 Flow Rate FiO2 06/16/17 06:25 98.1 68 18 122/78 (93) I&O- Last 24 Hours up to 6 AM 06/16/17 06:00 Intake Total 1740 ml Output Total 1300 ml Balance 440 ml SESSIONS,CJ Das MD Jun 16, 2017 06:55
[2017-06-16] MEDS: PRENATAL VITAMINS CHEWABLE TABLET PO SCH (08:46)
[2017-06-16] MEDS: IBUPROFEN 800 MG TAB PO PRN ×2 (08:47→21:02)
[2017-06-16 18:00] VITALS: BP 116/72
[2017-06-17 05:53] VITALS: BP 107/53
[2017-06-17] MEDS: PRENATAL VITAMINS CHEWABLE TABLET PO SCH (07:35)
[2017-06-17] MEDS ORDERED: IBUP-1114 PO (09:58)
[2017-06-17] MEDS ORDERED: COLA100C5 PO (09:58)
[2017-06-17] MEDS ORDERED: ACET50TA PO (09:58)
[2017-06-17] MEDS ORDERED: DIBU1OIN (09:58)
[2017-06-17] MEDS ORDERED: MOM30SS PO (09:58)
--- NOTE | 2017-06-17 19:09 | DSES ---
DATE OF ADMISSION: 06/15/2017 DATE OF DISCHARGE: This lady is a 22-year-old 2, now para 2, admitted in active labor, spontaneous vaginal delivery of a live- male , 7 pounds 7 ounces, 3360 grams. scores of 9 and 9 at one and five minutes, respectively. She had an epidural in place. No complications of antepartum or . On her second day we discussed phlebitis, cystitis, mastitis, metritis, cellulitis, diet, excise pain management, perineal, breast, and wound care. She will be given medications on discharge. Her hemoglobin 10.6, hematocrit 31.5, platelets are 197. Discharge vital signs: Her blood pressure is 107/53, respirations 18, pulse 97, temperature 98.9. The rest the examination is unremarkable. She is normocephalic, atraumatic. Neck: Full range of motion. Pupils equal and reactive to light. Distal pulses symmetric. No evidence of deep vein thrombosis (DVT) , pulmonary embolism (PE), or superficial phlebitis. No swelling. No reflex abnormality. Chest is clear bilaterally to bases. No wheezes or rhonchi. No costovertebral angle (CVA) tenderness. Abdomen is soft. Uterus 2 below. Lochia is moderate. Perineum is intact. She has no rashes, lesions, or pruritus. No arthralgia or myalgia. No complaints of cough, wheezes, shortness of breath, or dyspnea on exertion. No chest pain. Not bleeding. Neurologic complete. No incontinency, urgency, or frequency. No nausea, vomiting, diarrhea or constipation. No diabetic issues. 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 FAMILY HISTORY: Noncontributory. SOCIAL HISTORY: She does not smoke, drink, or abuse drugs. There is no domestic violence. In summary, we have a term gestation, delivered a live- male for discharge followup in 6 weeks' time at the clinic for check and medicine given at discharge.
--- NOTE | 2017-06-29 13:25 | IPN ---
DATE: 06/17/2017 This patient and requested circumcision of their male . After discussing risks and benefits of circumcision, the medical and nonmedical indications, penile block and aftercare, expressed understanding of penile block and aftercare, signed and witnessed consent form. We await the clearance by the scrap picker.
== END 2017-06-17 12:15 | disposition home or self-care (01) | DRG 775 ==
LOC: M LDO 06:15 → M LDI 07:02 → M OBS 18:50
PROVIDERS: ADMIT Student in an Organized Health Care Education/Training Program; ATTEND Student in an Organized Health Care Education/Training Program
PROC: 10E0XZZ Delivery of Products of Conception, External Approach (ICD-10-PCS; principal; 2017-06-15)
PROC: 10907ZC Drainage of Amniotic Fluid, Therapeutic from Products of Conception, Via Natural or Artificial Opening (ICD-10-PCS; 2017-06-15)
DX: O48.0 Post-term pregnancy (principal); Z37.0 Single live birth; Z3A.40 40 weeks gestation of pregnancy; O77.0 Labor and delivery complicated by meconium in amniotic fluid

== ENCOUNTER 2018-05-28 17:17 | Emergency (ER) | payer MEDICAID, OTHER ==
[2018-05-28 18:13] LABS: KETONE, URINE AUTO RFX NEGATIVE (NEGATIVE); LEUKOCYTE ESTERASE UR AUTO RFX NEGATIVE (NEGATIVE); MUCUS, URINE RFX SMALL (NEGATIVE); NITRITE, URINE AUTO RFX NEGATIVE (NEGATIVE); RBC, URINE AUTO RFX 1 /HPF (0-3); SPECIFIC GRAVITY UR AUTO RFX 1.026 (1.002-1.035); SQUAM EPITHELIAL CELL UR AURFX 1 /HPF (0-6); WBC, URINE AUTO RFX 0 /HPF (0-3)
[2018-05-28 18:23] LABS: BASO # 0.1 10^3/uL (0.0-0.2); BASO % 0.8 % (0.0-1.0); EOS # 0.1 10^3/uL (0.0-0.50); EOS % 0.9 % (0.0-3.0); HEMATOCRIT 36.6 % (36.0-47.0); HEMOGLOBIN 12.2 g/dl (12.0-15.5); IMMATURE GRANULOCYTE % 0.5 % (0-3.0); LYMPH # 2.6 10^3/uL (1.5-6.5); LYMPH % 30.3 % (24.0-44.0); MEAN CORPUSCULAR HEMOGLOBIN 29.8 pg (27.0-33.0); MEAN CORPUSCULAR HGB CONC 33.3 g/dl (32.0-36.5); MEAN CORPUSCULAR VOLUME 89.5 fl (80.0-96.0); MONO # 0.9 10^3/uL (0.0-0.8); MONO % 10.3 % (0.0-5.0); NEUTROPHILS % 57.2 % (36.0-66.0); PLATELET COUNT, AUTOMATED 283 10^3/uL (150-450); RED BLOOD COUNT 4.09 10^6/uL (4.00-5.40); RED CELL DISTRIBUTION WIDTH 12.3 % (11.5-14.5); WHITE BLOOD COUNT 8.7 10^3/uL (4.0-10.0)
[2018-05-28 18:59] LABS: HCG, SERUM QUANTITATIVE 2550 MIU/ML
== END 2018-05-28 20:22 | disposition home or self-care (01) ==
LOC: M ED 17:17
DX: Z32.01 Encounter for pregnancy test, result positive (principal); R00.0 Tachycardia, unspecified
CPT/HCPCS: 76801

== ENCOUNTER → 2018-05-30 | Outpatient (CLI) | payer MEDICAID ==
[2018-05-30 17:41] LABS: HCG, SERUM QUANTITATIVE 4703 MIU/ML
== END ==
LOC: M LAB 15:39
DX: O99.89 Other specified diseases and conditions complicating pregnancy, childbirth and the puerperium (principal); R10.2 Pelvic and perineal pain; Z3A.00 Weeks of gestation of pregnancy not specified
CPT/HCPCS: 84702

== ENCOUNTER 2018-06-09 20:16 | Emergency (ER) | payer MEDICAID ==
[2018-06-09] MEDS: ONDANSETRON 4MG/2ML VIAL (J2405) IV (22:34)
[2018-06-09] MEDS: NS 1,000 ML IV (22:34)
[2018-06-09 22:51] LABS: KETONE, URINE AUTO RFX NEGATIVE (NEGATIVE); LEUKOCYTE ESTERASE UR AUTO RFX NEGATIVE (NEGATIVE); MUCUS, URINE RFX SMALL (NEGATIVE); NITRITE, URINE AUTO RFX NEGATIVE (NEGATIVE); RBC, URINE AUTO RFX 1 /HPF (0-3); SPECIFIC GRAVITY UR AUTO RFX 1.025 (1.002-1.035); SQUAM EPITHELIAL CELL UR AURFX 3 /HPF (0-6); WBC, URINE AUTO RFX 0 /HPF (0-3)
[2018-06-09 23:15] LABS: HCG, SERUM QUANTITATIVE 29175 MIU/ML
== END 2018-06-09 23:57 | disposition home or self-care (01) ==
LOC: M ED 20:16
DX: O23.591 Infection of other part of genital tract in pregnancy, first trimester (principal); O21.0 Mild hyperemesis gravidarum; O23.41 Unspecified infection of urinary tract in pregnancy, first trimester; Z3A.01 Less than 8 weeks gestation of pregnancy; Z79.899 Other long term (current) drug therapy
CPT/HCPCS: J2405

== ENCOUNTER 2018-07-12 21:43 | Emergency (ER) | payer MEDICAID | END 2018-07-12 23:27 | disposition left against medical advice (07) | LOC: M ED 21:43 | DX: O21.0 Mild hyperemesis gravidarum (principal); Z3A.11 11 weeks gestation of pregnancy; Z53.21 Procedure and treatment not carried out due to patient leaving prior to being seen by health care provider ==

== ENCOUNTER → 2018-07-21 | Outpatient (CLI) | payer OTHER ==
[2018-07-21 13:39] LABS: BASO % 0.6 % (0.0-1.0); EOS % 0.6 % (0.0-3.0); HEMATOCRIT 35.9 % (36.0-47.0); IMMATURE GRANULOCYTE % 0.5 % (0-3.0); LYMPH % 31.2 % (24.0-44.0); MEAN CORPUSCULAR HEMOGLOBIN 29.7 pg (27.0-33.0); MEAN CORPUSCULAR HGB CONC 33.4 g/dl (32.0-36.5); MEAN CORPUSCULAR VOLUME 88.9 fl (80.0-96.0); MONO # 0.4 10^3/uL (0.0-0.8); MONO % 6.9 % (0.0-5.0); NEUTROPHILS # 3.9 10^3/uL (1.8-7.7); NEUTROPHILS % 60.2 % (36.0-66.0); PLATELET COUNT, AUTOMATED 271 10^3/uL (150-450); RED BLOOD COUNT 4.04 10^6/uL (4.00-5.40); RED CELL DISTRIBUTION WIDTH 12.5 % (11.5-14.5); WHITE BLOOD COUNT 6.4 10^3/uL (4.0-10.0)
[2018-07-21 14:11] LABS: GLUCOSE CHALLENGE TEST 1 HOUR 131 MG/DL (LESS THAN 140)
[2018-07-21 15:07] LABS: CHLAMYDIA DNA AMPLIFICATION NEGATIVE (NEGATIVE); GC DNA AMPLIFICATION NEGATIVE (NEGATIVE)
[2018-07-22 09:28] LABS: RUBELLA IgG QUALITATIVE IMMUNE (IMMUNE)
[2018-07-22 09:38] LABS: HBsAg Prenatal NEGATIVE (NEGATIVE)
[2018-07-22 10:08] LABS: HEPATITIS C VIRUS ABY INDEX 0.1 INDEX (<0.8)
[2018-07-22 10:08] LABS: HIV 1&2 SCREEN CENTAUR NEGATIVE (NEGATIVE)
[2018-07-25 10:08] LABS: HEMOGLOBIN A 97.5 % (96.4-98.8); HEMOGLOBIN A2 2.5 % (1.8-3.2); HGB SOLUBILITY Negative (Negative)
== END ==
LOC: M SMT 10:47
DX: Z34.81 Encounter for supervision of other normal pregnancy, first trimester (principal); Z36.89 Encounter for other specified antenatal screening
CPT/HCPCS: 82950

== ENCOUNTER → 2018-09-01 | Outpatient (CLI) | payer MEDICAID | LOC: M LRY 17:46 | DX: Z34.02 Encounter for supervision of normal first pregnancy, second trimester (principal); Z36.89 Encounter for other specified antenatal screening; Z3A.19 19 weeks gestation of pregnancy | CPT/HCPCS: 76811 ==

== ENCOUNTER 2018-09-13 19:12 | Outpatient (CLI) | payer MEDICAID ==
[2018-09-13] MEDS ORDERED: LR 1,000 ML IV ×2 (20:00→21:00)
== END 2018-09-13 23:05 | disposition home or self-care (01) ==
LOC: M LDO 19:12
DX: O21.9 Vomiting of pregnancy, unspecified (principal); Z3A.20 20 weeks gestation of pregnancy
CPT/HCPCS: 59025

== ENCOUNTER → 2018-09-23 | Outpatient (CLI) | payer OTHER, MEDICAID | LOC: M RAD 13:36 | DX: Z34.82 Encounter for supervision of other normal pregnancy, second trimester (principal); Z3A.21 21 weeks gestation of pregnancy | CPT/HCPCS: 76816 ==

== ENCOUNTER → 2018-10-07 | Outpatient (CLI) | payer OTHER ==
[2018-10-07 09:54] LABS: GLUCOSE, FASTING 74 MG/DL (LESS THAN 95)
[2018-10-07 10:33] LABS: 1 HR GLUCOSE 120 MG/DL (LESS THAN 180)
[2018-10-07 11:10] LABS: 2 HR GLUCOSE 116 MG/DL (LESS THAN 155)
[2018-10-07 12:25] LABS: 3 HR GLUCOSE 96 MG/DL (LESS THAN 140)
== END ==
LOC: M LAB 08:13
DX: Z34.83 Encounter for supervision of other normal pregnancy, third trimester (principal); Z3A.00 Weeks of gestation of pregnancy not specified
CPT/HCPCS: 82951

== ENCOUNTER → 2018-10-27 | Outpatient (CLI) | payer OTHER | LOC: M RAD 12:29 | DX: Z34.82 Encounter for supervision of other normal pregnancy, second trimester (principal); Z3A.27 27 weeks gestation of pregnancy | CPT/HCPCS: 76816 ==

== ENCOUNTER 2018-10-29 22:23 | Outpatient (CLI) | payer OTHER ==
[2018-10-29 23:24] LABS: APPEARANCE, URINE CLEAR (CLEAR); BACTERIA, URINE AUTO NEGATIVE (NEGATIVE); BILIRUBIN, URINE AUTO NEGATIVE (NEGATIVE); BLOOD, URINE BLOOD NEGATIVE (NEGATIVE); COLOR, URINE YELLOW (YELLOW); GLUCOSE, URINE (UA) AUTO NEGATIVE (NEGATIVE); KETONE, URINE AUTO 2+ mg/dL (NEGATIVE); LEUKOCYTE ESTERASE, URINE AUTO NEGATIVE (NEGATIVE); MUCUS, URINE MODERATE (NEGATIVE); NITRITE, URINE AUTO NEGATIVE (NEGATIVE); PROTEIN, URINE AUTO 1+ mg/dL (NEGATIVE); RBC, URINE AUTO 0 /HPF (0-3); SQUAMOUS EPITHELIAL CELL UR AU 2 /HPF (0-6); WBC, URINE AUTO 3 /HPF (0-3)
== END 2018-10-30 00:10 | disposition home or self-care (01) ==
LOC: M LDO 22:23
DX: O26.892 Other specified pregnancy related conditions, second trimester (principal); R10.2 Pelvic and perineal pain; O99.282 Endocrine, nutritional and metabolic diseases complicating pregnancy, second trimester; E86.0 Dehydration; Z3A.27 27 weeks gestation of pregnancy; O09.292 Supervision of pregnancy with other poor reproductive or obstetric history, second trimester; Z86.19 Personal history of other infectious and parasitic diseases
CPT/HCPCS: 59025

== ENCOUNTER → 2018-11-10 | Outpatient (CLI) | payer OTHER ==
[2018-11-10 09:59] LABS: BASO % 0.5 % (0.0-1.0); EOS % 0.5 % (0.0-3.0); HEMATOCRIT 32.1 % (36.0-47.0); HEMOGLOBIN 10.5 g/dl (12.0-15.5); IMMATURE GRANULOCYTE % 1.1 % (0-3.0); LYMPH # 1.6 10^3/uL (1.5-6.5); LYMPH % 19.1 % (24.0-44.0); MEAN CORPUSCULAR HEMOGLOBIN 28.8 pg (27.0-33.0); MEAN CORPUSCULAR HGB CONC 32.7 g/dl (32.0-36.5); MEAN CORPUSCULAR VOLUME 88.2 fl (80.0-96.0); MONO # 0.6 10^3/uL (0.0-0.8); MONO % 6.7 % (0.0-5.0); NEUTROPHILS # 6.2 10^3/uL (1.8-7.7); NEUTROPHILS % 72.1 % (36.0-66.0); PLATELET COUNT, AUTOMATED 256 10^3/uL (150-450); RED BLOOD COUNT 3.64 10^6/uL (4.00-5.40); RED CELL DISTRIBUTION WIDTH 13.2 % (11.5-14.5); WHITE BLOOD COUNT 8.5 10^3/uL (4.0-10.0)
[2018-11-10 10:22] LABS: GLUCOSE CHALLENGE TEST 1 HOUR 147 MG/DL (LESS THAN 140)
== END ==
LOC: M LAB 08:20
DX: Z36.89 Encounter for other specified antenatal screening (principal)
CPT/HCPCS: 82950

== ENCOUNTER → 2018-11-24 | Outpatient (CLI) | payer OTHER ==
[~2018-11-24] MED LIST: COLA100C5 PO; DIBU1OIN; IBUP-1114 PO; MACR100C43 PO; MAPA500T2 PO; MOM30SS PO; PRENTAB9 PO; REGL10TA6 PO; prenatal PO
[2018-11-24 13:03] LABS: HEMATOCRIT 33.3 % (36.0-47.0); MEAN CORPUSCULAR HEMOGLOBIN 28.3 pg (27.0-33.0); MEAN CORPUSCULAR VOLUME 85.6 fl (80.0-96.0); PLATELET COUNT, AUTOMATED 278 10^3/uL (150-450); RED BLOOD COUNT 3.89 10^6/uL (4.00-5.40); WHITE BLOOD COUNT 7.2 10^3/uL (4.0-10.0)
[2018-11-24 14:35] LABS: ALBUMIN 2.9 GM/DL (3.2-5.2); ALT/SGPT 14 U/L (12-78); BILIRUBIN,DIRECT < 0.1 MG/DL (0.0-0.2); BILIRUBIN,TOTAL 0.3 MG/DL (0.2-1.0); TOTAL PROTEIN 7.1 GM/DL (6.4-8.2)
== END ==
LOC: M SMT 11:12
PROVIDERS: ATTEND Advanced Practice Midwife
DX: O26.613 Liver and biliary tract disorders in pregnancy, third trimester (principal)

== ENCOUNTER → 2018-12-20 | Outpatient (CLI) | payer OTHER ==
--- NOTE | 2018-12-21 08:07 | REP ---
Clinical: Growth re-evaluation. Comparison: 10/27/2018 . Findings: Examination demonstrates a single live intrauterine in cephalic presentation. motion is identified by technologist. Placenta is noted anterior and grade grade II without evidence for placenta previa or abruption. Amniotic fluid volume is normal. Cervix measures 3.5 cm in length and appears closed. Nuchal cord cannot be excluded. Gestational age by LMP 34 weeks 5 days with SUSSY 01/26/2019 . Gestational age by current measurements 33 weeks 4 days with SUSSY 02/03/2019 . FHR equals 133 beats per minute. BPD 8.3 cm 33 weeks 2 days HC 31.3 cm 35 weeks 1 day AC 28.5 cm 32 weeks 2 days FL 6.6 cm 33 weeks 5 days HL 5.8 cm 33 weeks 4 days HC/AC ratio 1.10 Estimated weight 2142 grams ( 21st percentile). Biophysical profile score: 8/8 Amniotic fluid index: 15.1 cm (8.0 - 24.9) Umbilical cord SD ratio: 3.08 (2.00 - 3.00). Impression: 1. Single live advanced gestation in cephalic presentation demonstrating appropriate interval growth. 2. Biophysical profile score and amniotic fluid volume are normal. 3. Nuchal cord cannot be excluded. Electronically Signed by Cristi Sheppard MD 12/21/2018 07:58 A
== END ==
LOC: M RAD 12:26
PROVIDERS: ATTEND Advanced Practice Midwife
DX: O24.419 Gestational diabetes mellitus in pregnancy, unspecified control (principal); O26.843 Uterine size-date discrepancy, third trimester; Z3A.33 33 weeks gestation of pregnancy

== ENCOUNTER → 2019-01-05 | Outpatient (REF) | payer OTHER | LOC: M LAB REF 17:02 | PROVIDERS: ATTEND Advanced Practice Midwife | DX: Z34.83 Encounter for supervision of other normal pregnancy, third trimester (principal); Z3A.00 Weeks of gestation of pregnancy not specified ==

== ENCOUNTER → 2019-01-12 | Outpatient (CLI) | payer OTHER ==
[~2019-01-12] MED LIST changes: +METF10004 PO
--- NOTE | 2019-01-12 17:17 | REP ---
Obstetric ultrasound for biophysical profile: There is a single intrauterine gestation in a vertex presentation. The placenta is anterior without previa or abruptio. The placenta demonstrates grade 3 maturity. Gestational age by the first ultrasound is 37 weeks 4 days/SUSSY 01/29/2019. Gestational age by LMP is 38 weeks 4 days/SUSSY 01/26/2019. heart rate is 153 beats per minute. Amniotic fluid index is 11.8 (7.3 - 23.9). biophysical profile: Breathing 2.0 Movement 2.0 Tone 2.0 AFV 2.0 Total 0.8 / 0.8 Umbilical artery Doppler assessment: S/D ratio 2.82 (2.30-3.30) Resistive Index 0.65 (0.59-0.75 Diastolic Velocity 17.2 (>10 cm/sec) Electronically Signed by Angel Seay MD 01/12/2019 05:09 P
== END ==
LOC: M RAD 15:59
PROVIDERS: ATTEND Advanced Practice Midwife
DX: O24.415 Gestational diabetes mellitus in pregnancy, controlled by oral hypoglycemic drugs (principal); Z3A.37 37 weeks gestation of pregnancy

== ENCOUNTER 2019-01-14 15:15 | Inpatient (IN) | payer OTHER ==
[~2019-01-14] VITALS: Ht 167.6 cm; Wt 98.4 kg
[~2019-01-14 15:15] MED LIST changes: -METF10004 PO
[2019-01-14 15:34] VITALS: BP 127/83
--- NOTE | 2019-01-14 16:05 | HPE ---
DATE OF ADMISSION: 01/14/2019 A 23-year-old G4, P2-0-1-1 female at 38-2/7 weeks gestation by last menstrual period (LMP) consistent with 8-week ultrasound, estimated date of confinement (EDC) of 01/18/2019, presents for labor induction due to gestational diabetes requiring oral medications. She denies bleeding or contractions. COURSE: Patient initiated care at 8 weeks gestation 06/22/2018. Her blood pressure is 124/78, weigh was 208 pounds. Patient did not do a 3-hour GTT. She had a 1-hour glucose tolerance test of 131. She started testing sugars and was diagnosed with gestational diabetes. She was started on metformin initially once a day, and this was increased to twice a day during the . She had an ultrasound for growth on 12/20/2018, which showed growth in the 21st percentile. OBSTETRICAL HISTORY: 1. September 2013, miscarriage. 2. September 2014, 39-week vaginal delivery, 6-pound 7-ounce female infant, gestational diabetes. 3. May 2017, a 41-week vaginal delivery, 7-pound 6-ounce male . Complications: Placental abruption, and the infant of sudden syndrome (SIDS) at 5 months of age. MEDICAL HISTORY: None. ALLERGIES: None. SOCIAL HISTORY: The patient is . She denies cigarettes, alcohol, or drug use. FAMILY HISTORY: Noncontributory. PHYSICAL EXAMINATION: Blood pressure 118/74, pulse 84. She s in no apparent distress. HEAD AND NECK: Normal. LUNGS: Clear. HEART: Regular rate and rhythm. ABDOMEN: Nontender, gravid. heart tones category one. Sterile vaginal exam: 1 cm, 50%, -2, posterior, vertex, soft. EXTREMITIES: Nontender. Trace edema. LABORATORY DATA: Blood type A positive, rubella immune, RPR nonreactive. Hepatitis B and C negative. GBS negative on 01/05/2019. ASSESSMENT: A 23-year-old G4, P2 female at 38-2/7 weeks gestation with gestational diabetes presents for labor in duction. PLAN: Plan is to admit the patient on 01/14/2019. Risks of induction were discussed.
[2019-01-14 16:31] LABS: HEMOGLOBIN 9.9 g/dl (12.0-15.5); MEAN CORPUSCULAR HEMOGLOBIN 26.1 pg (27.0-33.0); MEAN CORPUSCULAR HGB CONC 30.9 g/dl (32.0-36.5); MEAN CORPUSCULAR VOLUME 84.2 fl (80.0-96.0); PLATELET COUNT, AUTOMATED 256 10^3/uL (150-450); WHITE BLOOD COUNT 7.6 10^3/uL (4.0-10.0)
[2019-01-14] MEDS ORDERED: METF10004 PO (16:37)
[2019-01-14] MEDS: miSOPROStol 50 MCG 1/2 TAB (S0191) SL SCH ×2 (16:46→20:50)
[2019-01-14 17:02] VITALS: BP 121/76
[2019-01-14 18:05] VITALS: BP 113/72
[2019-01-14 19:02] VITALS: BP 127/62
[2019-01-14 20:48] VITALS: BP 108/59
[2019-01-14 23:25] VITALS: BP 119/59
[2019-01-15] VITALS (26 sets, daily range): BP systolic 95–141; BP diastolic 51–85
[2019-01-15] MEDS: miSOPROStol 50 MCG 1/2 TAB (S0191) SL SCH (01:26)
[2019-01-15] MEDS ORDERED: FENTANYL 2MCG/ML ROPIVACAINE 0.2% IN 0.9% NACL 100ML IVBAG As Ordered ONE (05:28)
[2019-01-15] MEDS ORDERED: NALOXONE INJ 0.4 MG/1 ML VIAL (J2310) IV PRN (06:00)
[2019-01-15] MEDS ORDERED: EPIDURAL COMMENT XX SCH (06:00)
[2019-01-15] MEDS ORDERED: ONDANSETRON 4MG/2ML VIAL (J2405) IV PRN (06:00)
[2019-01-15] MEDS ORDERED: FENTANYL/ROPIVACAINE/NACL BAG 100 ML EPIDURAL SCH (06:00)
[2019-01-15] MEDS ORDERED: diphenhydrAMINE INJ 50MG/ML VIAL (J1200) IV PRN (06:00)
[2019-01-15] MEDS ORDERED: ePHEDrine SULFATE 25 MG/5 ML(5MG/ML) SYRINGE IV PRN (06:00)
[2019-01-15] MEDS ORDERED: REFRIGERATOR IV KEYS XX PRN (06:00)
[2019-01-15] MEDS ORDERED: LACTATED RINGER'S 1000 ML IV PRN (06:00)
[2019-01-15] MEDS ORDERED: EPIDURAL/PCA KEYS XX PRN (06:00)
[2019-01-15] MEDS ORDERED: OXYTOCIN 30 UNITS IN 0.9% NaCl 500ML IV BAG (J2590) As Ordered ONE (07:05)
[2019-01-15] MEDS ORDERED: OXYTOCIN DRIP 30 UNITS in APPROPRIATE DILUENT 1 EA IV SCH (08:26)
[2019-01-15] MEDS ORDERED: MEASLES,MUMPS,RUBELLA VACCINE INJ (MMR-II) (90707) SC SCH (08:30)
[2019-01-15] MEDS ORDERED: DOCUSATE SODIUM 100 MG CAP PO PRN (08:30)
[2019-01-15] MEDS ORDERED: METHYLERGONOVINE MALEATE 0.2 MG TAB PO PRN (08:30)
[2019-01-15] MEDS ORDERED: RHOGAM 300 MCG (1500 IU) INJ (J2790) IM SCH (08:30)
[2019-01-15] MEDS ORDERED: DIBUCAINE 1% OINTMENT 30GM TOP PRN (08:30)
--- NOTE | 2019-01-15 09:02 | DNPDOC ---
[facility] Delivery Note Delivery Note DATE OF DELIVERY: 01/15/2019 at 0752 PREDELIVERY DIAGNOSIS: 38-3/7 weeks' gestation and labor. POST DELIVERY DIAGNOSIS: Delivered. PROCEDURE: Spontaneous vaginal delivery. ELEVATOR PILOT: Ethan Blandon CNM, GRETCHEN ANESTHESIA: epidural. ESTIMATED BLOOD LOSS: 300 mL. FINDINGS: 6 pounds; 2710 grams; female , Score 9/10, A2GDM. DELIVERY SUMMARY: Patient is a 23-year-old female who is now a at 38.3 weeks gestation who was admitted for an IOL for A2GDM. She received an epidural for pain management. The patient progressed to fully dilated after 3 cytotec pills at 0746. She pushed to a live female in the LOT position with restitution to OP then slight transition to LOP at 0752. The anterior shoulder delivered with ease and the corpus immediately followed. The The baby was placed [id number] active and crying. The cord was clamped x2 after pulsation ceased and cut by the FOB. A 3-vessel cord was noted. The placenta delivered spontaneously and intact at 0759. Uterine hemostasis was achieved via rapid infusion of IV Pitocin and fundal massage. The vagina and perineum were inspected and found to be intact. Mom plans on her and they plan on naming her "Zoey." Both mom and baby are in stable condition. ETHAN BLANDON CNM Jan 15, 2019 09:02
[2019-01-15] MEDS: PRENATAL VITAMINS CHEWABLE TABLET PO SCH (12:20)
[2019-01-15] MEDS: IBUPROFEN 800 MG TAB PO PRN (17:34)
[2019-01-15] MEDS: ACETAMINOPHEN 500 MG TAB PO PRN ×2 (18:05→23:56)
[2019-01-16 06:42] VITALS: BP 105/57
[2019-01-16] MEDS ORDERED: MAPA500T2 PO (08:41)
[2019-01-16] MEDS ORDERED: IBUP-1114 PO (08:41)
[2019-01-16] MEDS ORDERED: INFLUENZA QUADRIVALENT PF VACCINE 0.5ML SYRINGE (90686) IM ONE (09:00)
[2019-01-16] MEDS: PRENATAL VITAMINS CHEWABLE TABLET PO SCH (09:52)
[2019-01-16] MEDS: IBUPROFEN 800 MG TAB PO PRN ×2 (10:55→21:13)
[2019-01-16 18:00] VITALS: BP 129/75
[2019-01-16] MEDS: ACETAMINOPHEN 500 MG TAB PO PRN (22:08)
[2019-01-17 06:14] VITALS: BP 132/88
[2019-01-17] MEDS: PRENATAL VITAMINS CHEWABLE TABLET PO SCH (08:43)
[2019-01-17] MEDS: IBUPROFEN 800 MG TAB PO PRN (08:43)
== END 2019-01-17 12:50 | disposition home or self-care (01) | DRG 807 ==
LOC: M LDI 15:15 → M OBS 01-15 11:43
PROVIDERS: ADMIT Specialist; ATTEND Advanced Practice Midwife
PROC: 3E0P7GC Introduction of Other Therapeutic Substance into Female Reproductive, Via Natural or Artificial Opening (ICD-10-PCS; 2019-01-14)
PROC: 10E0XZZ Delivery of Products of Conception, External Approach (ICD-10-PCS; principal; 2019-01-15)
DX: O24.425 Gestational diabetes mellitus in childbirth, controlled by oral hypoglycemic drugs (principal); Z37.0 Single live birth; Z3A.38 38 weeks gestation of pregnancy

== ENCOUNTER → 2019-06-29 | Outpatient (CLI) | payer OTHER ==
[~2019-06-29] MED LIST changes: +METF10004 PO
--- NOTE | 2019-06-29 12:19 | REP ---
Static ultrasound for dating and viability: The study is performed with transabdominal, endovaginal and Doppler ultrasound assessment: There is an intrauterine gestational sac. There is no pole. However, there is a normal size yolk sac measuring up to 1.8 mm in diameter. The mean diameter of the gestational sac is 720 mm. This corresponds to a gestational age of 5 weeks 4 days. Gestational age by LMP is 6 weeks 5 days. Right ovary: The right ovary measures 2.8 x 2.3 x 3.5 cm and is normal size. There is a right ovarian hemorrhagic cyst measuring up to 1.8 cm, likely a corpus luteum. Left ovary: The left ovary measures 3.3 x 1 point Brianna 1 0.5 cm. There is no dominant left ovarian mass or cyst. There is vascular flow in both ovaries. The Doppler resistive index of the parenchymal arteries in the right ovary is 0.53 left ovary 0.59. Impression: There is an intrauterine gestational sac with a yolk sac. There is no pole. There is a right ovarian 1.8 cm hemorrhagic cyst, likely a corpus luteum. Follow-up is recommended to establish a viable intrauterine gestation. Electronically Signed by Angel Seay MD 06/29/2019 12:11 P
== END ==
LOC: M RAD 11:06
PROVIDERS: ATTEND Nurse Practitioner Family
DX: Z32.01 Encounter for pregnancy test, result positive (principal)